=== PATIENT | female | born 1990 | race Caucasian/White ===

== ENCOUNTER 2019-04-12 17:01 | Emergency (ER) | payer SELFPAY ==
[~2019-04-12] VITALS: Wt 70.0 kg
[~2019-04-12 17:01] MED LIST: NITR-58 PO
[2019-04-12] MEDS ORDERED: SOD CHLORIDE 0.9% 1,000 ML IV STA (17:38)
[2019-04-12 19:46] VITALS: BP 105/69; PULSE 68; RESP 20
== END 2019-04-12 19:50 | disposition home or self-care (01) ==
LOC: FTE 17:01
DX: R10.2 Pelvic and perineal pain (principal); F17.210 Nicotine dependence, cigarettes, uncomplicated
CPT/HCPCS: 36415; 76801; 80053; 81001; 83690; 84702; 85025; 86900; 86901; 99285; J7030